=== PATIENT | female | born 1975 | race Caucasian/White ===

== ENCOUNTER 2016-10-06 13:55 | Emergency (ER) | payer SELFPAY ==
--- NOTE | 2016-11-30 16:41 | ER ---
ADMIT: 10/06/2016 RM/LOC: ER [facility] MR#: [id number] [facility] [id number] JOSE RODRIGUEZ [address] [place] [id number] Emergency Room Report SEX: F AGE: 40 : 1975 DATE: 10/06/2016 ADDENDUM: CHIEF COMPLAINT: Dental pain and history of MRSA. I did send her home with Bactrim and Keflex. Told her to follow up with a dentist as soon as possible. CLINICAL IMPRESSION: Dental abscess. PAM Gerber / Iron Choudhary MD / dong JOB #: [id number] CC: Iron Choudhary MD, Attending Physician Brooke Stanton MD, Family Physician
== END 2016-10-06 15:56 | disposition home or self-care (01) ==
LOC: ER 13:55
PROC: 3E0T3BZ Introduction of Anesthetic Agent into Peripheral Nerves and Plexi, Percutaneous Approach (ICD-10-PCS; principal; 2016-10-06)
DX: K04.7 Periapical abscess without sinus (principal); E11.9 Type 2 diabetes mellitus without complications; J44.9 Chronic obstructive pulmonary disease, unspecified; F17.210 Nicotine dependence, cigarettes, uncomplicated; Z88.1 Allergy status to other antibiotic agents; Z88.8 Allergy status to other drugs, medicaments and biological substances; Z88.6 Allergy status to analgesic agent; Z79.899 Other long term (current) drug therapy; Z86.14 Personal history of Methicillin resistant Staphylococcus aureus infection